=== PATIENT | female | born 1950 | race Caucasian/White ===

== ENCOUNTER → 2017-03-19 | Outpatient (CLI) | payer MEDICARE | END | disposition home or self-care (01) | LOC: PCVCCLINIC 14:32 | PROVIDERS: ATTEND Internal Medicine | DX: I10 Essential (primary) hypertension (principal); R00.2 Palpitations; E78.5 Hyperlipidemia, unspecified; Z87.891 Personal history of nicotine dependence; Z79.899 Other long term (current) drug therapy; Z79.82 Long term (current) use of aspirin | CPT/HCPCS: 80061; 93005; G0463 ==

== ENCOUNTER → 2021-01-07 | Outpatient (CLI) | payer MEDICARE ==
[~2021-01-07] MED LIST: IOHEXOL 300 MG/ML 50 ML VIAL. IJ ONE; IOHEXOL 300 MG/ML 50 ML VIAL. ONE; LIDOCAINE WITH 8.4% SOD BICARB 3 ML DISP.SYRIN. INJ ONE; LIDOCAINE WITH 8.4% SOD BICARB 3 ML DISP.SYRIN. ONE
--- NOTE | 2021-01-07 13:26 | RAD ---
EXAM: Imaging guidance for cervical myelography. HISTORY: Neck pain. Cervical stenosis. Cervical myelography is requested. TECHNIQUE: The procedure along with its risks and benefits were explained to the patient. She agreed to proceed. A timeout procedure was performed. The patient was placed prone on the fluoroscopy table and the lumbar spine visualized. There are early ges of instrumented posterior fusion from L1 through L4, with an estimated fusion at L4-5. There is b ulky bone graft material throughout the fused segments. The overlying skin was sterilely prepped. Mul tiple sites were attempted, but access to the central canal cannot be achieved. The patient was trans ferred to CT, an CT of the lumbar spine performed without contrast. There is diffuse solid ossificati on posteriorly from L1 through S1. No access for lumbar puncture is available. There is also not inst rumented posterior fusion at T12-L1. These findings were explained to the patient and the procedure was discontinued. The patient's contraindication to MRI apparently is an old bone graft stimulator with its electrodes bilaterally at T12. The generator is along the right flank. This is no longer in use. This is MR comp atible under certain conditions. MRI of the cervical spine would be preferable to cervical puncture i f possible. The patient planned to attempt MRI rather than cervical puncture. Interpretation of the lumbar CT images is as follows: There are pedicle screws on the right from L1 through L4. A pedicle screw has been removed at L5. The y are in place on the left from L1 through L3. There is solid osseous fusion along the lateral and po sterior elements from T12 through S1. There is grade 2 anterolisthesis at L4-5. The intervertebral discs are at least partially calcified a t each level from L1 through L5. There is moderate loss of intervertebral disc height at L4-5, but ot her lumbar disc heights are mostly preserved. T12-L1 is preserved. A vacuum disc phenomenon at T11-12 indicates mild to moderate degenerative disc disease. No fractures are identified. There are laminectomy changes from L2 through L5. These were decompressed the central canal, but are ossified more posteriorly. Foraminal narrowing is mild bilaterally at L1-2, and on the left greater t paulson right from L3 through L5. Bone graft harvesting changes are noted along the right posterior iliac bone. One or more of the following individualized dose reduction techniques were utilized for this examinat ion: 1. Automated exposure control. 2. Adjustment of the mA and/or kV according to patient size. 3. Use of iterative reconstruction technique. IMPRESSION: 1. Access to the central canal could not be achieved given solid bone graft material throughout the p osterior elements from T12 through S1. 2. The patient preferred cervical MRI to cervical puncture. Cervical MRI should be feasible with the patient's bone graft stimulator device, which is conditionally MRI compatible, and no longer function al. These findings were discussed with Sudha Cid on 01/07/2021. Electronically signed by: Yessi Arenas MD (01/07/2021 1:24 PM) [id number]
== END | disposition home or self-care (01) ==
LOC: RAD 08:06
PROVIDERS: ATTEND Neurological Surgery
DX: M48.02 Spinal stenosis, cervical region (principal); M54.2 Cervicalgia
CPT/HCPCS: 62302; J3490

== ENCOUNTER → 2021-01-09 | Outpatient (CLI) | payer MEDICARE ==
--- NOTE | 2021-01-09 13:55 | RAD ---
EXAMINATION: Magnetic resonance imaging (MRI) of the cervical spine without contrast 01/09/2021 9:24 AM HISTORY: Cervical radiculopathy. TECHNIQUE: Multiplanar multi-weighted MRI of the cervical spine was performed without intravenous con trast using the standard cervical spine protocol. Contrast information: None administered COMPARISON: None available. FINDINGS: The alignment of the cervical spine is normal. 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 Vertebral bodies demonstrate normal signal intensity on all sequences. No acute fracture is identified; however, if trauma is suspected, a CT scan would be a more sensitive examination for f ractures. The craniocervical junction is normal. The visualized portions of the skull base and the posterior fossa are normal. The spinal cord demonstrates normal signal intensity on all sequences. Mild disc desiccation at all levels of the cervical spine. No soft tissue abnormality is identified. Normal signal voids are present in the vertebral arteries. C2-C3: The disk is normal in configuration. There is mild right facet arthropathy. There is no uncov ertebral joint disease. There is no neuroforaminal stenosis. There is no spinal canal stenosis. C3-C4: There is a posterior disc osteophyte complex asymmetric to the right There is mild right facet arthropathy. There is mild right uncovertebral joint disease. There is moderate right neuroforaminal stenosis. There is mild spinal canal stenosis without cord compression or cord signal alteration. C4-C5: There is a posterior disc osteophyte complex with central disc extrusion. There is moderate ri ght and mild left facet arthropathy. There is mild uncovertebral joint disease. There is moderate rig ht and mild left neuroforaminal stenosis. There is moderate spinal canal stenosis with deformity of t he ventral cord without cord signal alteration.. C5-C6: The disk is normal in configuration. There is moderate left and mild right facet arthropathy. There is mild uncovertebral joint disease. There is mild left neuroforaminal stenosis. There is no s jani canal stenosis. C6-C7: The disk is normal in configuration. There is mild facet arthropathy. There is no uncovertebr al joint disease. There is mild left neuroforaminal stenosis. There is no spinal canal stenosis. C7-T1: The disk is normal in configuration. There is no facet arthropathy. There is no uncovertebral joint disease. There is no neuroforaminal stenosis. There is no spinal canal stenosis. IMPRESSION: Mild degenerative changes of the cervical spine as described in detail above. Electronically signed by: Emelyn Fragoso MD (01/09/2021 1:53 PM) VALERIA
== END ==
LOC: MRI 09:23
PROVIDERS: ATTEND Neurological Surgery
DX: M47.22 Other spondylosis with radiculopathy, cervical region (principal); M48.02 Spinal stenosis, cervical region; M25.78 Osteophyte, vertebrae
CPT/HCPCS: 72141

== ENCOUNTER → 2021-02-03 | Outpatient (CLI) | payer MEDICARE ==
[~2021-02-03] MED LIST changes: +ACET325T9 PO; +AMLO-186 PO; +ASPI325T8 PO; +CALC500T30 PO; +CHOL100013 PO; +DIPH25CA58 PO; +EVE1000C3 PO; +GLUC-158 PO; -IOHEXOL 300 MG/ML 50 ML VIAL. IJ ONE; -IOHEXOL 300 MG/ML 50 ML VIAL. ONE; -LIDOCAINE WITH 8.4% SOD BICARB 3 ML DISP.SYRIN. INJ ONE; -LIDOCAINE WITH 8.4% SOD BICARB 3 ML DISP.SYRIN. ONE; +MAGN250T10 PO; +OMEG1CAP65 PO; +POTA8CAP19 PO; +TETR15DR73 OU; +TURM500C4 PO; +UBID50TA PO; +VALS320T2 PO
[2021-02-03 15:02] LABS: BASO % 1 % (0-3); EOS % 1 % (0-3); HEMATOCRIT 36.3 % (36.0-47.0); HEMOGLOBIN 11.9 g/dL (12.0-15.5); LYMPH # 1.1 x10^3/uL (1.0-4.8); LYMPH % 44 % (24-48); MEAN CORPUSCULAR HEMOGLOBIN 27 pg (25-35); MEAN CORPUSCULAR HGB CONC 33 g/dL (31-37); MEAN CORPUSCULAR VOLUME 81 fL (79-100); MONO # 0.4 x10^3/uL (0.0-1.1); MONO % 15 % (0-9); NEUT # 0.9 x10^3/uL (1.8-7.7); NEUT % 38 % (31-73); PLATELET COUNT 327 x10^3/uL (140-400); RED CELL DISTRIBUTION WIDTH 15.9 % (11.5-14.5); WHITE BLOOD COUNT 2.5 x10^3/uL (4.0-11.0)
[2021-02-03 15:19] LABS: ALBUMIN/GLOBULIN RATIO 0.8 (1.0-1.7); CALCIUM 8.3 mg/dL (8.5-10.1); CREATININE 0.6 mg/dL (0.6-1.0); GFR 98.5; POTASSIUM 3.5 mmol/L (3.5-5.1); TOTAL BILIRUBIN 0.2 mg/dL (0.2-1.0); TOTAL PROTEIN 6.9 g/dL (6.4-8.2)
[2021-02-03 16:05] LABS: % BANDS 3 % (0-9); % BASOS 1 % (0-3); % EOS 1 % (0-5); % LYMPHS 47 % (24-48); % MONOS 8 % (0-10); % SEGS 40 % (35-66)
[2021-02-03 16:06] LABS: PLT ESTIMATE ADEQUATE (ADEQUATE)
[2021-02-03 16:07] LABS: POLYCHROMASIA SLIGHT
--- NOTE | 2021-02-03 20:49 | EKG ---
[facility] [address] [place] [address] Test Date: 2021-02-03 Test Time: 15:34:26 Pat Name: KENYON ARTIS Department: Room: Gender: F Public Speaking [employer]: : [id number] Requested By: JAMES CARPENTER Order Number: [id number] Reading MD: Yg Roberts MD Measurements Intervals Winner Rate: 70 P: 63 GA: 222 QRS: -17 QRSD: 92 T: 51 QT: 394 QTc: 428 Interpretive Statements SINUS RHYTHM PROLONGED GA INTERVAL Electronically Signed On 02-05-2021 7:54:09 CDT by Yg Roberts MD
== END ==
LOC: SURGPAT 14:55
PROVIDERS: ATTEND Neurological Surgery
DX: Z01.818 Encounter for other preprocedural examination (principal); M48.02 Spinal stenosis, cervical region; M54.12 Radiculopathy, cervical region; I10 Essential (primary) hypertension
CPT/HCPCS: 36415; 80053; 85007; 85025; 87641; 93005

== ENCOUNTER → 2021-02-10 | Outpatient (CLI) | payer MEDICARE ==
[2021-02-10 11:58] LABS: BASO % 2 % (0-3); EOS % 1 % (0-3); HEMATOCRIT 37.4 % (36.0-47.0); HEMOGLOBIN 12.5 g/dL (12.0-15.5); LYMPH # 1.5 x10^3/uL (1.0-4.8); LYMPH % 51 % (24-48); MEAN CORPUSCULAR HEMOGLOBIN 27 pg (25-35); MEAN CORPUSCULAR HGB CONC 33 g/dL (31-37); MEAN CORPUSCULAR VOLUME 80 fL (79-100); MONO # 0.4 x10^3/uL (0.0-1.1); MONO % 15 % (0-9); NEUT % 32 % (31-73); PLATELET COUNT 350 x10^3/uL (140-400); RED BLOOD COUNT 4.67 x10^6/uL (3.50-5.40); RED CELL DISTRIBUTION WIDTH 15.7 % (11.5-14.5)
== END ==
LOC: LAB 11:23
PROVIDERS: ATTEND Internal Medicine
DX: R79.89 Other specified abnormal findings of blood chemistry (principal)
CPT/HCPCS: 36415; 85025